=== PATIENT | male | born 1990 | race Caucasian/White ===

== ENCOUNTER 2022-04-04 15:45 | Inpatient (IN) ==
[2022-04-04] MEDS ORDERED: PIPERACILLIN/TAZOBACTAM 4.5 GM/120 ML BAG IV STA (16:15)
[2022-04-04] MEDS ORDERED: SODIUM CHLORIDE 0.9% 1000ML 500 ML IV SCH (16:15)
[2022-04-04] MEDS ORDERED: DAPTOmycin 675 MG in SYRINGE 0 ML IV ONE (16:26)
[2022-04-04] MEDS ORDERED: ACETAMINOPHEN 500 MG TAB PO STA (16:37)
[2022-04-04] MEDS ORDERED: HYDROmorphone INJ 1 MG/ML SYRINGE IV STA (16:38)
[2022-04-04] MEDS ORDERED: CLINDAMYCIN/D5W 900 MG/50 ML BAG IV ONE (16:38)
[2022-04-04] MEDS ORDERED: ONDANSETRON INJ 2 MG/ML 2 ML VIAL IV STA (16:38)
[2022-04-04 17:15] LABS: Basophils # (auto) 0.01 K/uL (0-0.2); Basophils % (auto) 0.1 %; Hematocrit (blood only) 35.3 % (40.1-51.0); Hemoglobin 12.1 g/dl (14.0-18.0); Immature Granulocytes # (auto) 0.11 K/uL (0.00-0.02); Immature Granulocytes % (auto) 0.8 %; Lymphocytes # (auto) 1.48 K/uL (1.2-3.4); Lymphocytes % (auto) 10.7 %; Mean Corpuscular Hemoglobin 28.8 pg (25.0-34.0); Mean Corpuscular Hgb Conc 34.3 g/dL (32.0-36.0); Mean Platelet Volume 11.4 fL (9.4-12.4); Monocytes % (auto) 9.4 %; Neutrophils # (auto) 10.98 K/uL (1.4-6.5); Platelet Count 153 K/uL (130-400); RDW Coefficient of Variation 12.5 % (11.5-14.5); RDW Standard Deviation 37.6 fL (36.4-46.3); White Blood Count 13.88 K/ul (4.8-10.8)
[2022-04-04] MEDS: SODIUM CHLORIDE 0.9% 1000ML 1,000 ML IV SCH ×3 (17:47→22:47)
--- NOTE | 2022-04-04 17:58 | Emergency Department Note ---
Impression & Plan Sepsis, Cellulitis of left upper extremity ED Provider Note INFORMANT: Patient and ED PROVIDER(S): Mike Ch MD CHIEF COMPLAINT: Left arm infection PLAN: Disposition: Admitted Condition: Guarded Outpatient prescription management: none Referral: None MEDICAL DECISION MAKING: Patient presented to the emergency room including a left arm infection. He had a very high fever, tachycardia, and significant cellulitis involving most of the forearm and left upper extremity. This was concerning for sepsis. The patient had a difficult IV access due to the limitation of not being able to utilize the left upper extremity and history of IVDA. IV team was able to establish per ipheral access. Sepsis fluids were administered. Patient was ordered for IV Zosyn, IV daptomycin, and IV clindamycin. Patient was also given oral Tylenol. The patient was treated with IV Dilaudid secondary to severe pain. He was also given Zofran. On reassessment he was feeling better. His fever and heart rate had improved. Patient's laboratory findings were concerning due to an elevated white blood cell count and procalcitonin that were consistent with infection. The patient did have cultures performed of blood as well as a surface culture of the drainage that was present. Patient was sent for CT imaging to evaluate for deep space infection and abscess. There is no evidence of abscess. Cellulitis noted. Radiology questioned possibility of triceps myositis. On reassessment the patient was feeling better and vital signs improved. Patient will need further management in the hospital due the to severe infection. Consultation was made with Dr. Antonio Covington of the [facility] service. Patient was evaluated in the ER for further management. Triage Nursing notes reviewed and agree them. Vital Signs: reviewed and remarkable for tachycardia and fever Differential diagnosis: Sepsis, UTI, pneumonia, metabolic, electrolyte abnormalities, cardiac sources, intracerebral event, toxicologic, neurologic, as well as other pathologies. Diagnostics interpreted by me: EC Lead ECG performed and revealed sinus tachycardic rhythm at 135 bpm, normal [place], QRS normal. No elevation or depression. No PACs or PVCs Cardiac Monitoring: Cardiac monitoring ordered by me: The patient was placed on continuous cardiac monitoring and observed. It revealed a sinus tachycardia at 116 beats per minute without ectopy or evidence of dysrhythmia. Imaging studies: CT scan of the left upper extremity reveals findings consistent with cellulitis. No abscess or subcutaneous air noted. Radiology questioned possible triceps myositis. HPI: The patient is a 31 year old male who presents to the Emergency Room with complaints of left arm infection. This started 4 to 5 days ago and is significantly worse. Patient states he noted it started on the forearm where he was cut while doing dariana work in a bathroom. He thinks it was on a piece of metal. The patient also notes the following associated symptoms, fever, spreading redness and swelling of the left upper extremity. The patient went to [facility] and the patient and family notes that he had an ID a nd was given a shot of antibiotics for relieving factors. They state that they were considering transfer but there were no beds available. Current pain is rated as 10/10. Pt denies LOC, headache, diaphoresis, visual changes, neck pain, chest pain, breathing difficulties, nausea, vomiting, abdominal pain, back pain, melena, hematochezia, urinary symptoms, numbness, weakness, lymphadenopathy, or other complaints. ROS: See above HPI for pertinent positives & negatives. A total of 10 systems reviewed and were otherwise negative. PAST MEDICAL HISTORY:See Below , narcotic abuse PAST SURGICAL HISTORY:See Below, FAMILY HISTORY:See Below SOCIAL HISTORY:See Below, smoker HOME MEDICATIONS:See Below ALLERGIES:See Below VITALS:See Below PHYSICAL EXAMINATION: GENERAL: Awake, alert, uncomfortable-appearing, in no distress HENT: Normocephalic, atraumatic. Oropharynx unremarkable. EYES: Normal conjunctiva. Sclera non-icteric. NECK: Inspection normal. Non-tender. Supple. No nuchal rigidity. FROM. No masses. RESPIRATORY: Clear to auscultation. No wheezes. No rales. Normal respiratory effort. CARDIAC: Tachycardic rate. Normal rhythm. No murmurs. No rubs. Extremities warm and well perfused. Pulses equal. No JVD. GI: Soft, non-distended. No tenderness to palpation. No rebound or guarding. No masses. RECTAL: Deferred. MUSCULOSKELETAL: Evaluation of left upper extremity reveals a significant mount of swelling of the forearm, elbow, and humerus area. There is associated cellulitis from the distal forearm extending proximally to the deltoid region. There is some mild drainage noted in the mid forearm area. Minimal crepitus appreciated. Chest examination reveals no tenderness. The back is symmetrical on inspection without obvious abnormality. There is no CVA tenderness to palpation. No joint edema. LOWER EXTREMITIES: Calves are equal size bilaterally and non-tender. No edema. No discoloration. NEURO: Normal sensorium. No sensory or motor deficits noted. SKIN: No rash or jaundice noted. CRITICAL CARE: I have personally spent greater than 30 minutes of critical care time in the direct management of this patient. This includes bedside care, interpretation of diagnostic studies, and testing, discussion with consultants, patient, and family members, and other required patient management activities. This 30 minutes is in excess of all separately billable procedures. Mike Ch MD Past Med/Surg History Social History Smoking Status: Current every day smoker Tobacco Type: Pipe Feels Safe at Home: Yes Allergies Allergies Allergy/AdvReac Type Severity Reaction Status Date / Time buprenorphine [From Suboxone] Allergy Unknown Verified 04/04/22 16:49 naloxone [From Suboxone] Allergy Unknown Verified 04/04/22 16:49 Home Meds Home Medications Medication Instructions Recorded Confirmed gabapentin 600 mg tablet 600 mg PO QID 04/04/22 04/04/22 hydroxyzine HCl 25 mg tablet 25 mg PO TID PRN Anxiety 04/04/22 04/04/22 lisinopril 10 mg tablet 10 mg PO QAM 04/04/22 04/04/22 Results & Data (ED) Vital Signs Vital Signs - 24 hr 04/04/22 15:58 04/04/22 16:37 04/04/22 16:56 Temperature 39.6 C H Temperature Source Skin Pulse Rate 134 H Pulse Rate [Right Finger] 130 H 128 H Respiratory Rate 20 Respiratory Effort / Characteristics Non-Labored Spontaneous Labored Respiratory Depth Normal Respiratory Pattern Regular Blood Pressure 157/81 H Blood Pressure [Right Arm] 158/73 H Blood Pressure Mean 106 Blood Pressure Mean [Right Arm] 101 Pulse Oximetry 98 94 Oxygen Delivery Method Room Air Sepsis Recent Fever Within 48 Hours Yes Sepsis New/Unexplained Change in Mental Status N/A Sepsis Action Taken by Nursing No Action Required 04/04/22 17:03 04/04/22 17:16 04/04/22 17:56 Temperature 37.7 C H Temperature Source Oral Pulse Rate Pulse Rate [Right Finger] 127 H 128 H 116 H Respiratory Rate Respiratory Effort / Characteristics Respiratory Depth Respiratory Pattern Blood Pressure Blood Pressure [Right Arm] Blood Pressure Mean Blood Pressure Mean [Right Arm] Pulse Oximetry 98 94 Oxygen Delivery Method Room Air Room Air Sepsis Recent Fever Within 48 Hours Sepsis New/Unexplained Change in Mental Status Sepsis Action Taken by Nursing 04/04/22 18:57 04/04/22 18:57 Temperature Temperature Source Pulse Rate Pulse Rate [Right Finger] 113 H Respiratory Rate Respiratory Effort / Characteristics Respiratory Depth Respiratory Pattern Blood Pressure Blood Pressure [Right Arm] Blood Pressure Mean Blood Pressure Mean [Right Arm] Pulse Oximetry 96 98 Oxygen Delivery Method Room Air Room Air Sepsis Recent Fever Within 48 Hours Sepsis New/Unexplained Change in Mental Status Sepsis Action Taken by Nursing Laboratory Data Result diagrams: 04/04/22 16:54 04/04/22 16:54 Lab Results 04/04/22 04/04/22 04/04/22 Range/Units 16:54 16:54 16:54 WBC 13.88 H (4.8-10.8) K/ul RBC 4.20 L (4.63-6.08) M/uL Hgb 12.1 L (14.0-18.0) g/dl Hct 35.3 L (40.1-51.0) % MCV 84.0 (80.0-100.0) fL MCH 28.8 (25.0-34.0) pg MCHC 34.3 (32.0-36.0) g/dL RDW Std Deviation 37.6 (36.4-46.3) fL RDW Coeff of Meg 12.5 (11.5-14.5) % Plt Count 153 (130-400) K/uL MPV 11.4 (9.4-12.4) fL Immature Gran % (Auto) 0.8 % Neut % (Auto) 79.0 % Lymph % (Auto) 10.7 % [place] % (Auto) 9.4 % Eos % (Auto) 0.0 % Baso % (Auto) 0.1 % Neut # (Auto) 10.98 H (1.4-6.5) K/uL Lymph # (Auto) 1.48 (1.2-3.4) K/uL [place] # (Auto) 1.30 H (0.24-0.82) K/uL Eos # (Auto) 0.00 (0-0.50) K/uL Baso # (Auto) 0.01 (0-0.2) K/uL Immature Gran # (Auto) 0.11 H (0.00-0.02) K/uL Sodium 131 L (136-145) mmol/L Potassium 4.4 (3.5-5.1) mmol/L Chloride 97 L (98-107) mmol/L Carbon Dioxide 27 (21-32) mmol/L Anion Gap 7 (3-11) BUN 24 H (6-23) mg/dl Creatinine 1.26 (0.6-1.4) mg/dl Est Cr Clr Drug Dosing 134.0 ml/min Est GFR ( Amer) 88.1 ml/min Est GFR (Non-Af Amer) 76.0 ml/min BUN/Creatinine Ratio 19.0 (10-20) Glucose 120 H (70-99(Fasting)) mg/dl Lactate (0.4-2.0) mmol/L Calcium 8.9 (8.5-10.1) mg/dl Magnesium 2.0 (1.7-2.4) mg/dl Total Bilirubin 0.6 (0.2-1.0) mg/dl Direct Bilirubin 0.1 (0-0.2) mg/dl AST 34 (13-39) U/L ALT 44 (7-52) U/L Alkaline Phosphatase 79 (34-104) U/L Troponin I High Sens 9.0 (0-20) pg/ml Total Protein 7.5 (6.0-8.3) gm/dl Albumin 4.1 (3.4-5.0) gm/dl Procalcitonin 1.20 H (0-0.5) ng/ml Urine Color Urine Appearance (Clear) Urine pH (4.5-7.5) Ur Specific [place] (1.000-1.030) Urine Protein (Negative) Urine Glucose (UA) (Negative) Urine Ketones (Negative) Urine Blood (Negative) Urine Nitrite (Negative) Urine Bilirubin (Negative) Urine Urobilinogen (Negative) Ur Leukocyte Esterase (Negative) Urine WBC (Auto) (0-5) /hpf Urine RBC (Auto) (0-4) /hpf U Hyaline Cast (Auto) (0-5) /lpf U Epithel Cells (Auto) (0-5) /lpf Urine Bacteria (Auto) (Negative) SARS-CoV-2, RNA, NAAT (NEGATIVE) 04/04/22 04/04/22 04/04/22 Range/Units 17:18 17:43 19:27 WBC (4.8-10.8) K/ul RBC (4.63-6.08) M/uL Hgb (14.0-18.0) g/dl Hct (40.1-51.0) % MCV (80.0-100.0) fL MCH (25.0-34.0) pg MCHC (32.0-36.0) g/dL RDW Std Deviation (36.4-46.3) fL RDW Coeff of Meg (11.5-14.5) % Plt Count (130-400) K/uL MPV (9.4-12.4) fL Immature Gran % (Auto) % Neut % (Auto) % Lymph % (Auto) % [place] % (Auto) % Eos % (Auto) % Baso % (Auto) % Neut # (Auto) (1.4-6.5) K/uL Lymph # (Auto) (1.2-3.4) K/uL [place] # (Auto) (0.24-0.82) K/uL Eos # (Auto) (0-0.50) K/uL Baso # (Auto) (0-0.2) K/uL Immature Gran # (Auto) (0.00-0.02) K/uL Sodium (136-145) mmol/L Potassium (3.5-5.1) mmol/L Chloride (98-107) mmol/L Carbon Dioxide (21-32) mmol/L Anion Gap (3-11) BUN (6-23) mg/dl Creatinine (0.6-1.4) mg/dl Est Cr Clr Drug Dosing ml/min Est GFR ( Amer) ml/min Est GFR (Non-Af Amer) ml/min BUN/Creatinine Ratio (10-20) Glucose (70-99(Fasting)) mg/dl Lactate 1.1 (0.4-2.0) mmol/L Calcium (8.5-10.1) mg/dl Magnesium (1.7-2.4) mg/dl Total Bilirubin (0.2-1.0) mg/dl Direct Bilirubin (0-0.2) mg/dl AST (13-39) U/L ALT (7-52) U/L Alkaline Phosphatase (34-104) U/L Troponin I High Sens (0-20) pg/ml Total Protein (6.0-8.3) gm/dl Albumin (3.4-5.0) gm/dl Procalcitonin (0-0.5) ng/ml Urine Color Yellow Urine Appearance Clear (Clear) Urine pH 6.5 (4.5-7.5) Ur Specific [place] 1.026 (1.000-1.030) Urine Protein 1+ H (Negative) Urine Glucose (UA) Negative (Negative) Urine Ketones Negative (Negative) Urine Blood Negative (Negative) Urine Nitrite Negative (Negative) Urine Bilirubin Negative (Negative) Urine Urobilinogen Positive H (Negative) Ur Leukocyte Esterase Trace H (Negative) Urine WBC (Auto) 5-10 H (0-5) /hpf Urine RBC (Auto) 0-4 (0-4) /hpf U Hyaline Cast (Auto) 1-5 (0-5) /lpf U Epithel Cells (Auto) >30 H (0-5) /lpf Urine Bacteria (Auto) Negative (Negative) SARS-CoV-2, RNA, NAAT NEGATIVE (NEGATIVE) Administered Medications Discontinued Medications Acetaminophen (Acetaminophen 500 Mg Tab) 1,000 mg PO NOW STA Stop: 04/04/22 16:38 Last Admin: 04/04/22 17:02 Dose: 1,000 mg Documented By: MICHAEL Hydromorphone HCl (Hydromorphone Inj 1 Mg/Ml Syringe) 1 mg IV NOW STA Stop: 04/04/22 16:39 Last Admin: 04/04/22 17:46 Dose: 1 mg Documented By: HAJA Sodium Chloride (Nss 1000ml) 500 mls @ 999 mls/hr IV .Q31M VLADIMIR Stop: 04/04/22 16:45 Last Infusion: 04/04/22 18:20 Dose: 0 mls/hr Documented By: Admin: 04/04/22 17:46 Dose: 999 mls/hr Documented By: HAJA Sodium Chloride (Nss 1000ml) 1,000 mls @ 999 mls/hr IV .Q1H1M VLADIMIR Stop: 04/04/22 18:15 Last Infusion: 04/04/22 18:49 Dose: 0 mls/hr Documented By: Admin: 04/04/22 17:47 Dose: 999 mls/hr Documented By: HAJA Daptomycin 675 mg/ Syringe 13.5 mls @ 6.75 mls/min IV NOW ONE; Protocol Stop: 04/04/22 16:27 Last Admin: 04/04/22 17:54 Dose: 6.75 mls/min Documented By: HAJA Piperacillin Sod/Tazobactam Sod (Zosyn) 4.5 gm in 120 mls @ 240 mls/hr IV NOW STA Stop: 04/04/22 16:44 Last Infusion: 04/04/22 18:20 Dose: 0 mls/hr Documented By: [facility] [place] Admin: 04/04/22 17:46 Dose: 240 mls/hr Documented By: HAJA Ioversol (Optiray 320 500ml) 108 ml IV ONCE ONE Stop: 04/04/22 18:36 Last Admin: 04/04/22 18:36 Dose: 108 ml Documented By: CHIOMA Ondansetron HCl (Ondansetron Inj 2 Mg/Ml 2 Ml Vial) 4 mg IV NOW STA Stop: 04/04/22 16:39 Last Admin: 04/04/22 17:46 Dose: 4 mg Documented By: HAJA Imaging Data Radiologist's Impression: Forearm CT 04/04/22 16:37 CT humerus LT w con, CT forearm LT w con CLINICAL HISTORY: cellulitis vs abscess TECHNIQUE: Multidetector row helical CT of the left humerus and left forearm was performed without intravenous contrast. Coronal and sagittal reformations were obtained. Automated dose lowering techniques and/or adjustment according to patient size were utilized for this examination. CT DOSE: 4159.97 mGy.cm Comparison: None available at the time of this dictation. FINDINGS: The osseous structures are without fracture or dislocation. The joint spaces are maintained. No joint effusion is seen. Soft tissue stranding is seen about the elbow. No drainable fluid collection is definitely seen. There is questionable hypodensity at the distal aspect of the triceps which may relate to beam hardening or represent findings of myositis. IMPRESSION: Cellulitis is seen without definite evidence of abscess. Possible triceps myositis versus artifact. The bones are unremarkable without evidence of osteomyelitis. ACT 112: Negative or not required by law. Electronically signed by: Murray Rodriguez M.D. 04/04/2022 6:[address] 04/04/22 16:37 CT humerus LT w con, CT forearm LT w con CLINICAL HISTORY: cellulitis vs abscess TECHNIQUE: Multidetector row helical CT of the left humerus and left forearm was performed without intravenous contrast. Coronal and sagittal reformations were obtained. Automated dose lowering techniques and/or adjustment according to patient size were utilized for this examination. CT DOSE: 4159.97 mGy.cm Comparison: None available at the time of this dictation. FINDINGS: The osseous structures are without fracture or dislocation. The joint spaces are maintained. No joint effusion is seen. Soft tissue stranding is seen about the elbow. No drainable fluid collection is definitely seen. There is questionable hypodensity at the distal aspect of the triceps which may relate to beam hardening or represent findings of myositis. IMPRESSION: Cellulitis is seen without definite evidence of abscess. Possible triceps myositis versus artifact. The bones are unremarkable without evidence of osteomyelitis. ACT 112: Negative or not required by law. Electronically signed by: Murray Rodriguez M.D. 04/04/2022 6:52 PM Discharge Plan Visit Data Chief Complaint: Infection Stated Complaint: LEFT ARM PAIN AND SWELLING,BLOOD INFECTION ED Provider: Mike Ch Discharge Problem: Sepsis, Cellulitis of left upper extremity Forms Stand Alone Forms: My [employer] Prescriptions Prescriptions: No Action gabapentin 600 mg tablet 600 mg PO QID hydroxyzine HCl 25 mg tablet 25 mg PO TID PRN (Reason: Anxiety) lisinopril 10 mg tablet 10 mg PO QAM Referrals Referrals: PCP,NO [Physician] -
[2022-04-04 18:09] LABS: Albumin Level 4.1 gm/dl (3.4-5.0); Bilirubin,Total 0.6 mg/dl (0.2-1.0); Calcium 8.9 mg/dl (8.5-10.1); Est GFR (African American) 88.1 ml/min; Potassium 4.4 mmol/L (3.5-5.1); Total Protein 7.5 gm/dl (6.0-8.3)
[2022-04-04] MEDS ORDERED: OPTIRAY 320 500ml IV ONE (18:35)
[2022-04-04 18:37] LABS: Bilirubin Direct 0.1 mg/dl (0-0.2)
--- NOTE | 2022-04-04 18:54 | CT Scan Report ---
CT humerus LT w con, CT forearm LT w con CLINICAL HISTORY: cellulitis vs abscess TECHNIQUE: Multidetector row helical CT of the left humerus and left forearm was performed without in travenous contrast. Coronal and sagittal reformations were obtained. Automated dose lowering techniqu es and/or adjustment according to patient size were utilized for this examination. CT DOSE: 4159.97 mGy.cm Comparison: None available at the time of this dictation. FINDINGS: The osseous structures are without fracture or dislocation. The joint spaces are maintained. No joint effusion is seen. Soft tissue stranding is seen about the elbow. No drainable fluid collection is d efinitely seen. There is questionable hypodensity at the distal aspect of the triceps which may relat e to beam hardening or represent findings of myositis. IMPRESSION: Cellulitis is seen without definite evidence of abscess. Possible triceps myositis versus artifact. T he bones are unremarkable without evidence of osteomyelitis. ACT 112: Negative or not required by law. Electronically signed by: Murray Rodriguez M.D. 04/04/2022 6:52 PM
[2022-04-04 19:45] LABS: Appearance Urine Clear (Clear); Bacteria Urine Automated Negative (Negative); Bilirubin Urine Negative (Negative); Blood Urine Negative (Negative); Color Urine Yellow; Epithelial Cell Urine Auto >30 /lpf (0-5); Glucose Urine UA Negative (Negative); Ketones Urine Negative (Negative); Leukocyte Esterase Urine Trace (Negative); Nitrite Urine Negative (Negative); Protein Urine 1+ (Negative); RBC Urine Automated 0-4 /hpf (0-4); Specific Gravity Urine 1.026 (1.000-1.030); Urobilinogen Urine Positive (Negative); pH Urine 6.5 (4.5-7.5)
--- NOTE | 2022-04-04 19:46 | History & Physical Report ---
Date of Service April 04, 2022 Assessment & Plan (1) Cellulitis of left upper extremity: Plan: - Patient's CT and physical exam are most consistent of cellulitis of the LUE. - Patient states he had TDaP done a year ago. Consider getting another shot this admission. - Will Switch IV daptomycin, IV Zosyn, and IV clindamycin to IV vancomycin and ceftriaxone - Toradol 15mg prn Q6H for pain. - MRSA nares pending - Blood and wound culture pending. (2) History of intravenous drug abuse: Plan: - States that he has not used since 2011. - On Subutex for opioid dependence, he is unsure of the exact dosing. - Will restart once dosing is established. (3) HTN (hypertension): Plan: - Continue at home lisinopril 10mg QAM (4) Sciatic nerve disease: Plan: - Continue at home gabapentin 600mg QID (5) Anxiety: Plan: - Hold at home hydroxyzine. Plan Fluids: NSS @ 80 ml/hr Nutrition: heart healthy Code status: full code Dispo: med/surg Thank you for allowing me to participate in the care of your patient. -Dr. Bismark Caceres PGY1 History of Present Illness Chief Complaint: Cellulitis of L upper extremity Primary Care Provider: Teetee Wilkinson Patient is a 31 y/o male who PMHx of HTN, sciatica, and IVDU who presents with left arm infection. 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 The patient thought nothing of it at first but then yesterday it got painful, swollen, and red on his L forearm. He went to [facility] and was given a shot of antibiotics, which is unsure about. He had to wait for a bed for some time at [facility] so he decided to come here instead. Patient also states that he is having fever, heart racing, and the swelling has been spreading up his arm to half way up his biceps today. Of note, Patient states that he has not used IV drugs since 2011. Had an abscess in the past but never cellulitis. in the ED: Patient significant cellulitis involving most of the forearm and left upper extremity. Patient started on IV Zosyn, daptomycin, and clindamycin and sepsis fluids which helped improve his heart rate and fever. Given IV Dilaudid for pain. CT showed cellulitis w/o evidence of abscess. Labs showed leukocytosis, elevated procal. Blood and wound cultures pending. Allergies Allergy/AdvReac Type Severity Reaction Status Date / Time buprenorphine [From Suboxone] Allergy Unknown Verified 04/04/22 16:49 naloxone [From Suboxone] Allergy Unknown Verified 04/04/22 16:49 Home Medications Medication Instructions Recorded Confirmed Type gabapentin 600 mg tablet 600 mg PO QID 04/04/22 04/04/22 History hydroxyzine HCl 25 mg tablet 25 mg PO TID PRN Anxiety 04/04/22 04/04/22 History lisinopril 10 mg tablet 10 mg PO QAM 04/04/22 04/04/22 History buprenorphine HCl 8 mg sublingual 20 mg sublingual DAILY 04/05/22 04/05/22 History tablet Past Med/Surg History Social History Smoking Status: Current every day smoker Tobacco Type: Pipe Second Hand Exposure: No; Do You Dip or Chew Tobacco: No; Tobacco Cessation Education Requested by Patient: No Hx Alcohol Use: Yes Hx Substance Use: Yes Substance Use Type Other:: 2012-heroin/cocaine Preferred Language: Tongan Communication Ability: Effective 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 Beliefs That Will Affect Care: None Current Living Situation: Spouse Feels Safe at Home: Yes Safety Concerns: Feels Safe At This Time Assistive Devices: None Review of Systems Review of Systems: All systems reviewed & are unremarkable except as noted in HPI & below Physical Exam Constitutional: well developed Eyes: PERRL, conjunctivae normal, anicteric sclerae ENMT: external ear and nose normal, oropharynx normal Neck: trachea midline, no thyromegaly Respiratory: normal respiratory effort, lungs clear to auscultation Cardiovascular: RRR, no murmur, no edema Gastrointestinal (Abdomen): normal bowel sounds, soft, nontender, no hepatosplenomegaly Musculoskeletal: left upper extremity reveals a significant mount of swelling of the forearm, elbow, and humerus area. There is associated cellulitis from the distal forearm extending proximally to the deltoid region. There is some mild drainage noted in the mid forearm area. Results & Data Results & Data ([facility]) Vital Signs (Past 12 Hours) Vital Signs Temp Pulse Pulse Resp BP BP Pulse Ox 04/04/22 18:57 98 04/04/22 18:57 113 H 96 04/04/22 17:56 37.7 C H 116 H 94 04/04/22 17:16 128 H 04/04/22 17:03 127 H 98 04/04/22 16:56 128 H 94 04/04/22 16:37 130 H 158/73 H 04/04/22 15:58 39.6 C H 134 H 20 157/81 H 98 O2 Del Method 04/04/22 18:57 Room Air 04/04/22 18:57 Room Air 04/04/22 17:56 Room Air 04/04/22 17:16 04/04/22 17:03 Room Air 04/04/22 16:56 04/04/22 16:37 04/04/22 15:58 Room Air Supervising Physician Co-Signing Physician Notes Attending addendum: I have physically seen this patient, have supervised the medical residents activities, and agree with the H&P unless as otherwise noted. Assessment and Plan: Left upper extremity cellulitis- Received daptomycin IV, Zosyn IV and clindamycin IV from the ED Admitted on vancomycin IV and ceftriaxone IV MRSA swab Tdap as noted Follow-up blood and wound culture and sensitivities Toradol 15 mg IV every 6 hours as needed moderate pain Opioid dependence- Continue Subutex No IVDA since 2011 Hypertension- Continue lisinopril with hold parameters Remaining orders and notations as noted
[2022-04-04] MEDS ORDERED: KETOROLAC TROMETHAMINE 15 MG/ML VIAL IV ONE (20:43)
[2022-04-04] MEDS ORDERED: KETOROLAC TROMETHAMINE 15 MG/ML VIAL IM PRN (22:36)
[2022-04-04] MEDS ORDERED: VANCOMYCIN CONSULT ACTIVE PRN (22:36)
[2022-04-04] MEDS: cefTRIAXone SODIUM 2,000 MG in DEXTROSE 5% 50 ML IV SCH (23:47)
[2022-04-04] MEDS: GABAPENTIN 600 MG TAB PO SCH (23:48)
[2022-04-05] MEDS ORDERED: VANCOMYCIN HCL 2,500 MG in SODIUM CHLORIDE 0.9% 500 ML IV ONE (06:00)
[2022-04-05] MEDS: KETOROLAC TROMETHAMINE 15 MG/ML VIAL IV PRN ×2 (06:18→15:36)
[2022-04-05 08:53] LABS: Hematocrit (blood only) 31.6 % (40.1-51.0); Hemoglobin 10.6 g/dl (14.0-18.0); Mean Corpuscular Hemoglobin 28.6 pg (25.0-34.0); Mean Corpuscular Hgb Conc 33.5 g/dL (32.0-36.0); Mean Corpuscular Volume 85.4 fL (80.0-100.0); Mean Platelet Volume 11.3 fL (9.4-12.4); Platelet Count 136 K/uL (130-400); RDW Coefficient of Variation 12.6 % (11.5-14.5); RDW Standard Deviation 39.6 fL (36.4-46.3)
[2022-04-05 09:10] LABS: BUN Creatinine Ratio 23.1 (10-20); Creatinine Clr Calc Pharmacy 138.8 ml/min; Est GFR (African American) 92.6 ml/min; Est GFR (Non-African American) 79.9 ml/min; Potassium 4.4 mmol/L (3.5-5.1)
[2022-04-05] MEDS ORDERED: ACETAMINOPHEN 500 MG TAB PO PRN (09:14)
--- NOTE | 2022-04-05 09:16 | Hospitalist Progress Note ---
Date of Service April 05, 2022 Assessment & Plan (1) Cellulitis of left upper extremity: Plan: Attending: Dr. Ramos Impression: 31-year-old male with laceration to forearm 5 days prior to admission. Found to have cellulitis with no evidence of abscess on CT scan. Elevated procalcitonin and fever on admission. Patient received clindamycin, Zosyn, and daptomycin in the emergency department. He was then started on ceftriaxone and vancomycin inpatient. Blood cultures and forearm culture pending. Patient complaining of 8 out of 10 pain to the arm. Continue with IV antibiotics including ceftriaxone and vancomycin pending cultures Unclear on vaccination status for tetanus although patient reports Tdap 1 year ago Continue Toradol for pain. We will also add Acetaminophen secondary to history of narcotic abuse Await cultures Increased erythema.Left arm is now very tense with increased edema to the hand as well as increased pressure in the humeral region. Doubt compartment syndrome as patient has pitting edema in the arm as well as excellent radial and ulnar pulses Upper extremity duplex without evidence of DVT or abscess. There is evidence of phlegmon but no well-developed abscess in the left upper extremity. Elevate arm above heart (2) HTN (hypertension): Plan: Continue lisinopril Hemodynamically stable (3) Sciatic nerve disease: Plan: Continue gabapentin (4) Anxiety: Plan: Continue hydroxyzine 25 mg 3 times daily as needed (5) History of intravenous drug abuse: Plan: Patient denies any intravenous use since 2011 Patient reports he is on Subutex for opioid dependence but is unsure of dosing This was not continued on admission. Review of PDMP shows last Rx reveals 70 tablets on 03/28/2022 with sig as 2 1/2 tablets once daily as prescribed by Dr. Venkat Sánchez. I tried to call him at to review plan but was unable to connect Will give Dialudid 0.5mg IV PRN for pain while inpatient Hold Subutec (buprenorphine) while receiving narcotics Plan DVT prophylaxis: Patient not started on chemical prophylaxis. Due to fever and cellulitis, will start heparin 5000 units every 12 hours subcutaneously Anticipate discharge home. Patient would like to be discharged tomorrow as he has an appoint with an trust and estates attorney for closing on a property. Admission and Anticipated Discharge Date Admission Date: April 04, 2022 Supervising Physician Co-Signing Physician Notes Attending Attestation - Chart reviewed, care plan d/w ARNALDO Fowler. I agree w/ the gunn components of his documentation. Rodrick Ramos MD Subjective Attending: Dr. Ramos Is a 31-year-old male that was admitted yesterday for cellulitis of left upper extremity. He has a history of intravenous drug abuse and states that he has not used illegal substances since 2011. The patient does continue on Subutex for opioid dependence but is unsure of his exact dosing. 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 Yesterday he developed pain and swelling and presented to [facility] he was waiting for placement there as an inpatient but got tired of waiting for a bed so he left AMA and presented to [facility]. Blood cultures x2 are pending Culture of left forearm is pending T-max of 39.6 C yesterday at 15:58 Procalcitonin 1.2 ng/mL Lactic acid 1.1 04/05/22 07:57 Patient complaining of left forearm pain 8 out of 10 after receiving ketorolac (Toradol). Requesting additional pain medication. Pain generally controlled with Dilaudid 0.5mg IV q3h Increased swelling of left forearm with expansion of edema. Arm more tense upto the bicep and tricep region Review of Systems Review of Systems: A total of 10 systems was reviewed and is negative other than as listed in the HPI Physical Exam Physical Exam: GENERAL : No acute distress EYES: No icterus, gaze conjugate NOSE: No evidence of epistaxis MOUTH: No lesions or candidiasis NECK: Supple LUNGS: CTA B/L, no wheezes, rales or rhonchi HEART: Regular, rate controlled ABDOMEN: Soft, NT, ND, BS Present EXTREMITIES: No LE edema, pedal pulses intact. His edema and tenseness of the left arm. Erythema has extended beyond the boundaries made yesterday [facility]. Radial and ulnar pulses equal and intact bilaterally. Good capillary refills of all nails and left hand. No evidence of cyanosis of the nailbeds. NEURO: A&OX3 Results & Data Results & Data ([facility]) Vital Signs (Past 12 Hours) Vital Signs Temp Pulse Resp BP Pulse Ox O2 Del Method 04/05/22 06:02 37.5 C 90 18 110/53 L 96 Room Air 04/04/22 22:36 37.1 C 100 H 18 137/70 96 Room Air Critical Care Results & Data Vital Signs (Past 12 Hours) Vital Signs Temp Pulse Resp BP Pulse Ox O2 Del Method 04/05/22 06:02 37.5 C 90 18 110/53 L 96 Room Air 04/04/22 22:36 37.1 C 100 H 18 137/70 96 Room Air Lab & Micro Results (Past 24 Hours) No Data to Display No Data to Display No Data to Display Microbiology 04/04/22 16:35 Gram Stain - Final Arm,Left Diagnostic Findings (Past 24 Hours) Forearm CT 04/04/22 16:37 CT humerus LT w con, CT forearm LT w con CLINICAL HISTORY: cellulitis vs abscess TECHNIQUE: Multidetector row helical CT of the left humerus and left forearm was performed without intravenous contrast. Coronal and sagittal reformations were obtained. Automated dose lowering techniques and/or adjustment according to patient size were utilized for this examination. CT DOSE: 4159.97 mGy.cm Comparison: None available at the time of this dictation. FINDINGS: The osseous structures are without fracture or dislocation. The joint spaces are maintained. No joint effusion is seen. Soft tissue stranding is seen about the elbow. No drainable fluid collection is definitely seen. There is questionable hypodensity at the distal aspect of the triceps which may relate to beam hardening or represent findings of myositis. IMPRESSION: Cellulitis is seen without definite evidence of abscess. Possible triceps myositis versus artifact. The bones are unremarkable without evidence of ost eomyelitis. ACT 112: Negative or not required by law. Electronically signed by: Murray Rodriguez M.D. 04/04/2022 6:[address] 04/04/22 16:37 CT humerus LT w con, CT forearm LT w con CLINICAL HISTORY: cellulitis vs abscess TECHNIQUE: Multidetector row helical CT of the left humerus and left forearm was performed without intravenous contrast. Coronal and sagittal reformations were obtained. Automated dose lowering techniques and/or adjustment according to patient size were utilized for this examination. CT DOSE: 4159.97 mGy.cm Comparison: None available at the time of this dictation. FINDINGS: The osseous structures are without fracture or dislocation. The joint spaces are maintained. No joint effusion is seen. Soft tissue stranding is seen about the elbow. No drainable fluid collection is definitely seen. There is questionable hypodensity at the distal aspect of the triceps which may relate to beam hardening or represent findings of myositis. IMPRESSION: Cellulitis is seen without definite evidence of abscess. Possible triceps myositis versus artifact. The bones are unremarkable without evidence of osteomyelitis. ACT 112: Negative or not required by law. Electronically signed by: Murray Rodriguez M.D. 04/04/2022 6:52 PM US venous doppler UE LT CLINICAL HISTORY: Left forearm infection r/o abcess/DVT PROCEDURE: Left upper extremity real-time compression venous ultrasound with Duplex and Color Doppler imaging. Comparison: None available at the time of this dictation. FINDINGS: Utilizing real-time ultrasonic imaging multiple real time high-resolution ultr asonic images of the deep venous system were performed from the forearm through the subclavian vein including evaluation of the jugular vein. Compression real time ultrasonic imaging was performed in addition to color Doppler imaging and duplex Doppler ultrasound with velocity spectral profile analysis. There is normal compressibility of the deep venous system from the forearm through the subclavian vein. Normal vascular flow is currently identified. No evidence of superficial thrombosis is identified. Impression: No evidence of deep venous thrombus. Please see soft tissue ultrasound for findings of infection. ACT 112: Negative or not required by law. Electronically signed by: Murray Rodriguez M.D. 04/05/2022 5:06 PM US soft tissue ext ltd CLINICAL HISTORY: r/o abscess in left forearm TECHNIQUE: Real-time grayscale sonographic images of the left forearm were obtained. Comparison: Comparison is made to CT humerus and forearm 04/04/2022 FINDINGS/IMPRESSION: There is ill-defined region of hyperemia and edema over the open area of the left forearm compatible with phlegmon without well-defined abscess. ACT 112: Negative or not required by law. Electronically signed by: Murray Rodriguez M.D. 04/05/2022 5:08 PM I & O Totals 24 Hours 04/04/22 04/05/22 04/06/22 06:59 06:59 06:59 Intake Total 2740 / 2740 Balance 2740 / 2740 Cumulative 04/04/22 15:45 thru 04/05/22 00:50 Intake Total 2740 Balance 2740 RT Ventilator Mngmt (Last Documented) Ventilator Ordered Settings Respiratory Rate 18 04/05/22 06:02 Ventilator - PT Measurements Respiratory Rate 18 PG Care Time/CCT Total # of Minutes Spent Total Time Spent with Patient: Total time spent is greater than 50% in coordination of care (as documented) at patient's floor/unit and/or counseling patient: Coding Level of Care Code 16610 Subseq Hosp Care Lvl 2 Diagnoses Cellulitis of left upper extremity L03.114 HTN (hypertension) I10 Sciatic nerve disease G57.00 Anxiety F41.9 History of intravenous drug abuse F19.11
[2022-04-05] MEDS: lisinopril 10 MG TAB PO SCH (09:27)
[2022-04-05] MEDS: GABAPENTIN 600 MG TAB PO SCH ×4 (09:27→20:25)
[2022-04-05 09:58] LABS: Basophils # (auto) 0.01 K/uL (0-0.2); Basophils % (auto) 0.1 %; Eosinophils # (auto) 0.06 K/uL (0-0.50); Eosinophils % (auto) 0.6 %; Immature Granulocytes # (auto) 0.07 K/uL (0.00-0.02); Immature Granulocytes % (auto) 0.7 %; Lymphocytes % (auto) 13.3 %; Monocytes # (auto) 0.91 K/uL (0.24-0.82); Monocytes % (auto) 9.3 %; Neutrophils # (auto) 7.45 K/uL (1.4-6.5)
--- NOTE | 2022-04-05 10:13 | Pharmacy Report ---
Pharmacy PK ABX Note - Date of Service April 05, 2022 - Assessment and Plan Assessment 31 year old M started on Vancomycin early this morning for treatment of LUE cellulitis. Pertinent microbiologic data includes: negative MRSA swab. Blood and L arm wound cultures pending. Also started on IV Ceftriaxone daily. Patient was initially started Daptomycin, IV Clindamycin and Zosyn yesterday which were all discontinued and changed to Vanco + Ceftriaxone Day #2 of antimicrobial therapy. Plan Vancomycin * Loading dose: 2500 mg IV (16.7 mg/kg) x 1 given around 6 AM today. * Maintenance dose: 1500 mg (around 10 mg/kg) IV every 12 hours ordered to start this evening. Lower dosing by kg selected for patient's BMI greater than 35 kg/m2. * Regimen is predicted to achieve target AUC/TIAGO of 400-600 mg/L.hr * Trough Vancomycin level ordered for: 04/07/22 before dose at 6:00 AM Pharmacy will continue to follow and will adjust dose/frequency as necessary. Thank you. Pharmacy has transitioned to AUC monitoring for vancomycin. AUC/TIAGO is the preferred PK/PD target and is associated with decreased risk of nephrotoxicity compared to traditional trough targets.
[2022-04-05] MEDS: HYDROmorphone INJ 0.5 MG/0.5 ML SYR IV PRN ×2 (11:12→18:41)
[2022-04-05] MEDS: HEPARIN SOD 5,000 UNIT/0.5 ML VIAL SQ SCH ×2 (11:12→20:26)
[2022-04-05] MEDS ORDERED: NICOTINE POLACRILEX 2 MG GUM MT PRN (11:46)
[2022-04-05] MEDS: SODIUM CHLORIDE 0.9% 1000ML 1,000 ML IV SCH (13:44)
[2022-04-05] MEDS: VANCOMYCIN HCL 1,500 MG in SODIUM CHLORIDE 0.9% 500 ML IV SCH (17:08)
--- NOTE | 2022-04-05 17:08 | Ultrasound Report ---
US venous doppler UE LT CLINICAL HISTORY: Left forearm infection r/o abcess/DVT PROCEDURE: Left upper extremity real-time compression venous ultrasound with Duplex and Color Doppler imaging. Comparison: None available at the time of this dictation. FINDINGS: Utilizing real-time ultrasonic imaging multiple real time high-resolution ultrasonic images of the de ep venous system were performed from the forearm through the subclavian vein including evaluation of the jugular vein. Compression real time ultrasonic imaging was performed in addition to color Dopple r imaging and duplex Doppler ultrasound with velocity spectral profile analysis. There is normal compressibility of the deep venous system from the forearm through the subclavian vei n. Normal vascular flow is currently identified. No evidence of superficial thrombosis is identified. Impression: No evidence of deep venous thrombus. Please see soft tissue ultrasound for findings of infection. ACT 112: Negative or not required by law. Electronically signed by: Murray Rodriguez M.D. 04/05/2022 5:06 PM
--- NOTE | 2022-04-05 17:10 | Ultrasound Report ---
US soft tissue ext ltd CLINICAL HISTORY: r/o abscess in left forearm TECHNIQUE: Real-time grayscale sonographic images of the left forearm were obtained. Comparison: Comparison is made to CT humerus and forearm 04/04/2022 FINDINGS/IMPRESSION: There is ill-defined region of hyperemia and edema over the open area of the lef t forearm compatible with phlegmon without well-defined abscess. ACT 112: Negative or not required by law. Electronically signed by: Murray Rodriguez M.D. 04/05/2022 5:08 PM
--- NOTE | 2022-04-05 19:41 | Billing Data ---
Date of Service April 05, 2022 Coding Level of Care Code 46459 Initial Inpt Care Lvl 3
[2022-04-05] MEDS: cefTRIAXone SODIUM 2,000 MG in DEXTROSE 5% 50 ML IV SCH (23:00)
[2022-04-06] MEDS: SODIUM CHLORIDE 0.9% 1000ML 1,000 ML IV SCH (03:51)
[2022-04-06] MEDS: VANCOMYCIN HCL 1,500 MG in SODIUM CHLORIDE 0.9% 500 ML IV SCH (05:24)
[2022-04-06] MEDS ORDERED: NICOTINE 21 MG/24 HR TDSY TD SCH ×2 (09:00)
[2022-04-06] MEDS: lisinopril 10 MG TAB PO SCH (09:13)
[2022-04-06] MEDS: GABAPENTIN 600 MG TAB PO SCH (09:13)
[2022-04-06] MEDS: HEPARIN SOD 5,000 UNIT/0.5 ML VIAL SQ SCH (09:14)
[2022-04-06 10:14] LABS: Basophils # (auto) 0.01 K/uL (0-0.2); Basophils % (auto) 0.1 %; Eosinophils # (auto) 0.06 K/uL (0-0.50); Eosinophils % (auto) 0.8 %; Hematocrit (blood only) 34.7 % (40.1-51.0); Hemoglobin 11.7 g/dl (14.0-18.0); Immature Granulocytes # (auto) 0.04 K/uL (0.00-0.02); Immature Granulocytes % (auto) 0.5 %; Lymphocytes # (auto) 1.16 K/uL (1.2-3.4); Lymphocytes % (auto) 14.9 %; Mean Corpuscular Hemoglobin 29.1 pg (25.0-34.0); Mean Corpuscular Hgb Conc 33.7 g/dL (32.0-36.0); Mean Corpuscular Volume 86.3 fL (80.0-100.0); Mean Platelet Volume 11.1 fL (9.4-12.4); Monocytes # (auto) 0.48 K/uL (0.24-0.82); Monocytes % (auto) 6.2 %; Neutrophils # (auto) 6.03 K/uL (1.4-6.5); Neutrophils % (auto) 77.5 %; Platelet Count 169 K/uL (130-400); RDW Coefficient of Variation 12.3 % (11.5-14.5); RDW Standard Deviation 39.2 fL (36.4-46.3); Red Blood Count 4.02 M/uL (4.63-6.08); White Blood Count 7.78 K/ul (4.8-10.8)
[2022-04-06 10:48] LABS: BUN Creatinine Ratio 18.9 (10-20); Creatinine Clr Calc Pharmacy 186.6 ml/min; Est GFR (African American) 132.4 ml/min; Est GFR (Non-African American) 114.2 ml/min; Potassium 4.5 mmol/L (3.5-5.1)
--- NOTE | 2022-04-06 11:11 | Discharge Summary ---
Date of Service April 06, 2022 Admission HPI Per Admitting Provider Patient is a 31 y/o male who PMHx of HTN, sciatica, and IVDU who presents with left arm infection. 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 The patient thought nothing of it at first but then yesterday it got painful, swollen, and red on his L forearm. He went to [facility] and was given a shot of antibiotics, which is unsure about. He had to wait for a bed for some time at [facility] so he decided to come here instead. Patient also states that he is having fever, heart racing, and the swelling has been spreading up his arm to half way up his biceps today. Of note, Patient states that he has not used IV drugs since 2011. Had an abscess in the past but never cellulitis. in the ED: Patient significant cellulitis involving most of the forearm and left upper extremity. Patient started on IV Zosyn, daptomycin, and clindamycin and sepsis fluids which helped improve his heart rate and fever. Given IV Dilaudid for pain. CT showed cellulitis w/o evidence of abscess. Labs showed leukocytosis, elevated procal. Blood and wound cultures pending. Principal Diagnosis Left upper extremity abscess and cellulitis, MRSA Sepsis Discharge Exam Vitals reviewed Gen: [AAOx3, NAD] HEENT: [anicteric sclerae, EOMI] CV: [RRR no mgr nl S1S2] Pulm: [CTAB no wcr] Abd: [+BS soft NT ND no masses or hernias] Ext: [LUE with severe edema from left hand all the way up to biceps, with significant erythema, induration, erythema improved from distal demarcated line but above upper line. Copious purulent drainage trickling out continuously from central wound left forearm with fluctuance around wound, NVI distally in left hand Neuro: [full strength throughout] Discharge Data Allergies Allergy/AdvReac Type Severity Reaction Status Date / Time buprenorphine [From Suboxone] Allergy Unknown Verified 04/04/22 16:49 naloxone [From Suboxone] Allergy Unknown Verified 04/04/22 16:49 Consultations 04/04/22 19:32 ED Decision to Admit Stat 04/06/22 09:00 Consult Orthopedic Surgery Routine Ordered Studies 04/04/22 16:37 CT arm [CT forearm LT w con] Stat CT arm [CT humerus LT w con] Stat 04/05/22 14:53 US venous doppler UE LT Urgent 04/05/22 16:18 US soft tissue ext ltd Routine Hospital Course (1) Cellulitis of left upper extremity: With severe cellulitis and developing abscess of LUE/forearm With fevers,sepsis now resolved, BCxs remain NGTD Wound cx now with MRSA wound draining copious purulent material and there is almost certainly loculated abscess that needs surgical drainage Stressed importance of staying in hospital to have this evaluated by Orthopedics and he is adamant about leaving AMA due to a very important house closing today or else he will lose thousands of dollars. I advised him that without continued IV abx, surgical drainage, and continued stay in hospital, he could lose his limb, develop worsening sepsis, or even . Advised I would not be prescribing any oral medications on discharge because that is not currently the advisable plan of action. He reports he will return to the hospital later today for readmission and Ortho evaluation I did discuss his care with Dr. Rosa of [facility] on the phone who is happy to see the patient when he returns. Pt left before Orthopedics able to evaluate him. (2) History of intravenous drug abuse: - States that he has not used since 2011. - On Subutex for opioid dependence, he is unsure of the exact dosing. (3) HTN (hypertension): - Continue at home lisinopril 10mg QAM (4) Sciatic nerve disease: - Continue at home gabapentin 600mg QID (5) Anxiety: continue home hydroxyzine. Plan Left AMA Total Time Total Time Spent Total Time Spent (In Minutes): 35 min Discharge Plan Discharge Items Patient Disposition: Against Medical Advice Reason For Visit: cellulitis of l upper extremity Activity: Resume your previous activity Non-emergency contact: Primary Care Provider Follow-up/Referrals: Teetee Wilkinson, PAJaeC [Primary Care Provider] - Pending Studies at Discharge: Yes Stand-Alone Forms: My [facility] [id number] Digital, Smoking Cessation Medications and DC Order Prescriptions: Continued gabapentin 600 mg tablet 600 mg PO QID hydroxyzine HCl 25 mg tablet 25 mg PO TID PRN (Reason: Anxiety) lisinopril 10 mg tablet 10 mg PO QAM buprenorphine HCl 8 mg tablet, sublingual 20 mg SUBLINGUAL DAILY Discharge Orders: Left Against Medical Advice (Routine); Ordered 04/06/22 Ordered By: Vijaya Riggins Admission Data Admit Date/Time: 04/04/22 20:15 Attending Provider: Vijaya Riggins Admit Provider: Bismark Ccaeres Primary Care Provider: Teetee Wilkinson Other Providers: Antonio Covington ; Miguel Obregon Coding Level of Care Code D/C DAY MANAGEMENT >30 MINS Diagnoses Cellulitis of left upper extremity L03.114 History of intravenous drug abuse F19.11 HTN (hypertension) I10 Sciatic nerve disease G57.00 Anxiety F41.9
--- NOTE | 2022-04-06 15:58 | Electrocardiogram Report ---
Test Reason : Blood Pressure : / mmHG Vent. Rate : 135 BPM Atrial Rate : 135 BPM P-R Int : 168 ms QRS Dur : 086 ms QT Int : 268 ms P-R-T Axes : 046 067 046 degrees QTc Int : 402 ms Sinus tachycardia Otherwise normal ECG No previous ECGs available Confirmed by Florian Benoit ([id number]) on 04/06/2022 3:58:23 PM Referred By: REFERRED SELF Confirmed By:Florian Benoit
--- NOTE | 2022-04-06 22:17 | Electrocardiogram Report ---
Test Reason : Blood Pressure : / mmHG Vent. Rate : 102 BPM Atrial Rate : 102 BPM P-R Int : 170 ms QRS Dur : 086 ms QT Int : 330 ms P-R-T Axes : 033 056 034 degrees QTc Int : 430 ms Sinus tachycardia Possible Septal infarct , age undetermined Abnormal ECG When compared with ECG of 04-APR-2022 16:30, Septal infarct is now Present Confirmed by Florian Benoit ([id number]) on 04/06/2022 10:17:17 PM Referred By: REFERRED SELF Confirmed By:Florian Benoit
[2022-04-07] MEDS ORDERED: VANCOMYCIN LEVEL SCH (05:00)
== END 2022-04-06 10:30 | disposition left against medical advice (07) | DRG 872 ==
LOC: ED 15:45 → 3W 20:15 → SUATTDRO 20:15 → 3W 21:32